=== PATIENT | female | born 1960 | race Caucasian/White ===

== ENCOUNTER → 2016-11-28 | Outpatient (CLI) | payer BC ==
[2016-11-28 13:51] VITALS: BP 144/85
== END ==
LOC: MHUC 13:21
PROVIDERS: ATTEND Physician Assistant
DX: R21 Rash and other nonspecific skin eruption (principal)
CPT/HCPCS: 99212

== ENCOUNTER → 2017-02-27 | Outpatient (CLI) | payer BC ==
[~2017-02-27] MED LIST: ALPR1TAB PO; ASPI325T4 PO; BUPR150T9 PO; CEPH-507 PO; DOXY100T41 PO; DULO20CA PO; INDO25OR2 PO; LORTAB PO; METH4TAB27 PO; NAPR220T76 PO; OXYC1TAB87 PO; PREG25CA GT; SULF-228 PO; TIZA2TAB3; cymbalta; ultracet
--- NOTE | 2017-02-27 12:04 | Diagnostic Imaging Report ---
INDICATION: Calf tenderness with bilateral leg swelling. FINDINGS: There is normal color flow enhancement from the external iliac vein to the ankles. Calf compression shows normal augmentation of flow with popliteal level. There are noted bilateral inguinal lymph nodes which appear slightly enlarged though do maintain normal appearing architectural pattern with fatty hilum. No evidence of popliteal cyst. IMPRESSION: No evidence of deep venous thrombosis. Dictated by: Dictated on workstation # [id number]
[2017-02-27 12:14] LABS: BASOPHILS % (AUTO) 1 % (0-2); EOSINOPHILS # (AUTO) 0.2 10^3uL; EOSINOPHILS % (AUTO) 4 % (0-4); LYMPHOCYTES # (AUTO) 1.4 X10^3; MEAN CORPUSCULAR HEMOGLOBIN 28.5 PG (26.0-34.0); MEAN CORPUSCULAR HGB CONC 33.5 g/dL (31.0-37.0); MEAN CORPUSCULAR VOLUME 85 FL (80-100); MEAN PLATELET VOLUME 8.4 FL (6.0-9.5); MONOCYTES # (AUTO) 0.3 X10^3; MONOCYTES % (AUTO) 7 % (3-11); NEUTROPHILS # (AUTO) 2.6 X10^3; NEUTROPHILS % (AUTO) 58 % (51-67); PLATELET COUNT 396 10^3uL (150-450); WHITE BLOOD COUNT 4.55 10^3uL (4.0-11.0)
[2017-02-27 12:33] LABS: ALBUMIN 3.9 g/dL (3.4-5.0); ANION GAP 11.2 MEQ/L (3-15); CALCULATED IONIZED CALCIUM 3.9 mg/dL (3.8-4.6); TOTAL PROTEIN 7.3 g/dL (6.4-8.5)
[2017-02-27 20:23] LABS: BILIRUBIN,URINE Negative (Negative); CLARITY,URINE Clear; COLOR,URINE Yellow; GLUCOSE, URINE (UA) Negative (Negative); LEUKOCYTE ESTERASE ,URINE Negative (Negative); UROBILINOGEN,URINE 0.2 mg/dL (0.2-1.0)
== END ==
LOC: RAD 10:52
PROVIDERS: ATTEND Family Medicine
DX: I87.2 Venous insufficiency (chronic) (peripheral) (principal); M79.89 Other specified soft tissue disorders; M79.7 Fibromyalgia; M17.0 Bilateral primary osteoarthritis of knee; M79.661 Pain in right lower leg; M79.662 Pain in left lower leg
CPT/HCPCS: 36415; 80053; 81003; 83721; 84443; 85025; 93970

== ENCOUNTER → 2017-03-02 | Outpatient (CLI) | payer BC | LOC: LAB 02-26 17:26 | PROVIDERS: ATTEND Family Medicine | DX: D64.9 Anemia, unspecified (principal) | CPT/HCPCS: 36415; 82607; 82728; 82746; 83540; 83550 ==

== ENCOUNTER → 2017-03-05 | Outpatient (CLI) | payer BC | LOC: LAB 14:46 | PROVIDERS: ATTEND Family Medicine | DX: D64.9 Anemia, unspecified (principal) ==